=== PATIENT | female | born 1985 | race Caucasian/White ===

== ENCOUNTER → 2019-08-03 16:28 | Outpatient (CLI) | payer BC, SELFPAY ==
[2019-08-03 15:28] VITALS: BMI 26.1
--- NOTE | 2019-08-03 16:41 | EKG12_ITS ---
Test Reason : Blood Pressure : / mmHG Vent. Rate : 074 BPM Atrial Rate : 074 BPM P-R Int : 158 ms QRS Dur : 084 ms QT Int : 406 ms P-R-T Axes : 041 074 031 degrees QTc Int : 450 ms Normal sinus rhythm Normal ECG Confirmed by SHAHRIAR PARKS, MATHEW ([id number]), sound editor GUY SNYDER ([id number]) on 08/06/2019 10:42:45 AM Referred By: KAMRAN HUSSEIN Confirmed By:MATHEW BESS MD
== END ==
DX: O24.919 Unspecified diabetes mellitus in pregnancy, unspecified trimester (principal); Z3A.00 Weeks of gestation of pregnancy not specified
CPT/HCPCS: 93005

== ENCOUNTER → 2021-06-23 | Outpatient (CLI) | payer BC, SELFPAY ==
[2021-06-23 15:33] LABS: Microalbumin,Random Urine < 5.0 mg/L (NO RANGE EST.)
== END | disposition home or self-care (01) ==
LOC: LABSPEC 14:08
PROVIDERS: Referring Provider Internal Medicine Endocrinology, Diabetes & Metabolism; Visit Provider Internal Medicine Endocrinology, Diabetes & Metabolism
DX: E10.9 Type 1 diabetes mellitus without complications (principal)
CPT/HCPCS: 82043; 82570